=== PATIENT | female | born 1995 | race Caucasian/White ===

== ENCOUNTER 2016-08-15 08:20 | Emergency (ER) | payer OTHER, BC ==
[~2016-08-15] VITALS: Ht 165.1 cm; Wt 50.0 kg
[2016-08-15] MEDS ORDERED: NAPROSYN500 MG PO (10:03)
[2016-08-15] MEDS ORDERED: FLEXERIL10 MG PO (10:03)
[2016-08-15 10:17] VITALS: BP 112/88
== END 2016-08-15 10:17 | disposition home or self-care (01) ==
LOC: EME → EDBD 08:20 → EME 10:17
PROC: 3E0234Z Introduction of Serum, Toxoid and Vaccine into Muscle, Percutaneous Approach (ICD-10-PCS; principal; 2016-08-15)
DX: M54.9 Dorsalgia, unspecified (principal); M54.2 Cervicalgia; M25.522 Pain in left elbow; M25.532 Pain in left wrist; M79.605 Pain in left leg; V47.0XXA Car driver injured in collision with fixed or stationary object in nontraffic accident, initial encounter; Y92.488 Other paved roadways as the place of occurrence of the external cause
CPT/HCPCS: 72040; 72125; 99281; 99283